=== PATIENT | female | born 1995 | race Caucasian/White ===

== ENCOUNTER 2016-11-09 16:26 | Emergency (ER) | payer BC ==
[2016-11-09] MEDS ORDERED: Take Home: Amoxicillin 875 MG Tab, 2 Tab Pack PO ONE (16:52)
--- NOTE | 2016-11-09 16:58 | EDM.PDOC ---
ED HPI ENT - General Chief Complaint: ENT Problem Time Seen by Provider: 11/09/16 16:40 Source of Information: Reports: Patient - History of Present Illness INITIAL COMMENTS - FREE TEXT/NARRATIVE: 3week history of sinus congestion, headache, cough nonproductive. denies fever , chills, bodyache. occasional sore throat. - Related Data Allergies/ADRs: Allergies Allergy/AdvReac Type Severity Reaction Status Date / Time No Known Allergies Allergy Verified 11/09/16 16:44 Home Meds: Home Meds Amoxicillin 875 mg PO BID #16 tablet 11/09/16 [Rx] Levothyroxine Sodium [Levothyroxine Sodium] 150 mcg DAILY 11/09/16 [History] Norethindrone-Ethinyl Estrad [Nortrel 1-35 28 Tablet] 1 tab DAILY 11/09/16 [ History] ED ROS ENT - Review of Systems Review Of Systems: ROS reveals no pertinent complaints other than HPI. ED EXAM, ENT - Physical Exam Exam: See Below General Appearance: alert, WD/WN, no apparent distress Ears: normal external exam, normal canal, TM dullness (herman) Nose: normal inspection Mouth/Throat: Normal inspection, Normal gums, Normal lips, Normal oropharynx, Normal teeth Head: atraumatic, normocephalic Neck: normal inspection, supple, non-tender Respiratory/Chest: no respiratory distress, lungs clear, normal breath sounds, no accessory muscle use Cardiovascular: regular rate, rhythm GI/Abdominal: normal bowel sounds, soft, non tender Course - Orders/Labs/Meds Orders: Active Orders 24 hr Category Date Time Status Amoxicillin [Take Home: Amoxicillin 875 MG Tab, 2 Tab Med 11/09/16 16:52 Once Pack] 1 packet PO ONETIME ONE Medication Orders Amoxicillin (Take Home: Amoxicillin 875 Mg Tab, 2 Tab Pack) 1 packet PO ONETIME ONE Stop: 11/09/16 16:53 Meds: Medications Generic Name Dose Route Start Last Admin Trade Name Freq PRN Reason Stop Dose Admin Amoxicillin 1 packet 11/09/16 16:52 Take Home: Amoxicillin 875 Mg Tab, 2 Tab Pack PO 11/09/16 16:53 ONETIME ONE Departure - Departure Time of Disposition: 17:30 Disposition: Home, Self-Care 01 Condition: good Clinical Impression: Acute sinusitis Prescriptions: Amoxicillin 875 mg PO BID #16 tablet Forms: ED Department Discharge Care Plan Goals: amoxicillin 875mg by mouth twice a day for 10 days total. - Problem List & Annotations (1) Acute sinusitis SNOMED Code(s): 62586918 Code(s): J01.90 - ACUTE SINUSITIS, UNSPECIFIED Status: Acute Priority: Medium Qualifiers: Sinusitis location: unspecified location - My Orders Last 24 Hours: My Active Orders 11/09/16 16:52 Amoxicillin [Take Home: Amoxicillin 875 MG Tab, 2 Tab Pack] 1 packet PO ONETIME ONE - Assessment/Plan Last 24 Hours: My Active Orders 11/09/16 16:52 Amoxicillin [Take Home: Amoxicillin 875 MG Tab, 2 Tab Pack] 1 packet PO ONETIME ONE Plan: amoxicillin 875mg twice a day for total of 10 days.
[2016-11-09 17:14] VITALS: BP 121/84
== END 2016-11-09 17:05 | disposition home or self-care (01) ==
LOC: VM.ED 16:26
DX: J01.90 Acute sinusitis, unspecified (principal); Z79.899 Other long term (current) drug therapy
CPT/HCPCS: 99283; 99283-GF; A9270-GY

== ENCOUNTER 2020-09-26 05:55 | Emergency (ER) | payer BC, MEDICAID ==
--- NOTE | 2020-09-26 06:22 | EDM.PDOC ---
<Jose Dale W - Last Filed: 09/26/20 06:26> ED HPI GENERAL MEDICAL PROBLEM - General Chief Complaint: Chest Pain Stated Complaint: Mid sternal chest pain Time Seen by Provider: 09/26/20 06:10 Source of Information: Reports: Patient History Limitations: Reports: No Limitations - History of Present Illness INITIAL COMMENTS - FREE TEXT/NARRATIVE: Pt. presents to ER with complaints of respirophasic chest pain. Pt. states that she started experiencing the discomfort yesterday and is concerned that the discomfort is not getting any better. She states that the has had some cough, but feels that this is chronic due to smoking. No productive cough. She does complain of some mild sinus congestion. She states that she is not experiencing any jaw, arm, neck or back pain. Denies any hemoptysis. She is not on control. Pt. denies any shortness of breath. No lightheadedness. Denies any palpitations or lightheadedness. Onset Date: 09/25/20 Location: Reports: Chest Quality: Reports: Sharp Associated Symptoms: Reports: Chest Pain. Denies: Confusion, Cough, Diaphoresis, Fever/Chills, Nausea/Vomiting, Syncope - Related Data Allergies Allergy/AdvReac Type Severity Reaction Status Date / Time No Known Allergies Allergy Verified 07/04/19 08:54 Home Meds: Home Meds . [No Known Home Meds] 09/26/20 [History] Past Medical History - Past Health History Medical/Surgical History: Denies Medical/Surgical History Psychiatric History: Reports: Anxiety, Depression Endocrine/Metabolic History: Reports: Hypothyroidism - Past Surgical History GI Surgical History: Reports: Cholecystectomy Social & Family History - Family History Endocrine/Metabolic: Reports: Hypothyroidism ED ROS GENERAL - Review of Systems Review Of Systems: See Below Constitutional: Reports: No Symptoms. Denies: Fever, Chills, Malaise, Fatigue HEENT: Reports: No Symptoms Respiratory: Reports: Pleuritic Chest Pain Cardiovascular: Reports: Chest Pain Endocrine: Reports: No Symptoms GI/Abdominal: Reports: No Symptoms : Reports: No Symptoms Musculoskeletal: Reports: No Symptoms Skin: Reports: No Symptoms Neurological: Reports: No Symptoms Psychiatric: Reports: No Symptoms Hematologic/Lymphatic: Reports: No Symptoms Immunologic: Reports: No Symptoms Departure - Departure Disposition: Home, Self-Care 01 Clinical Impression: Musculoskeletal chest pain - Discharge Information Instructions: Chest Wall Pain, [id number], Nonspecific Chest Pain, Adult, [id number] Referrals: PCP,None [Primary Care Provider] - Forms: ED Department Discharge Additional Instructions: Tylenol and or Ibuprofen as needed for pain. Consider quitting smoking. Return to the ED if new or worsening symptoms. Follow up with PCP in the next 4-6 days if not improving sooner if worse. <Watson Mondragon - Last Filed: 09/26/20 08:17> ED EXAM, GENERAL - Physical Exam Exam: See Below Exam Limited By: No Limitations General Appearance: Alert, WD/WN, No Apparent Distress Ears: Normal External Exam, Normal TMs Nose: Normal Inspection, Normal Mucosa, No Blood Throat/Mouth: Normal Inspection, Normal Lips, Normal Teeth, Normal Voice, No Airway Compromise Head: Atraumatic, Normocephalic Neck: Normal Inspection, Supple, Non-Tender, Full Range of Motion Respiratory/Chest: No Respiratory Distress, Lungs Clear, Normal Breath Sounds, No Accessory Muscle Use, Chest Non-Tender Cardiovascular: Normal Peripheral Pulses, Regular Rate, Rhythm GI/Abdominal: Normal Bowel Sounds, Soft, Non-Tender (Female) Exam: Deferred Rectal (Female) Exam: Deferred Back Exam: Normal Inspection, Full Range of Motion Extremities: Normal Inspection, Normal Range of Motion, Normal Capillary Refill Neurological: Alert, Oriented, CN II-XII Intact, Normal Cognition, No Motor/Sensory Deficits Psychiatric: Normal Affect, Normal Mood Skin Exam: Warm, Dry, Intact, Normal Color Course - Vital Signs Last Recorded V/S: Last Vital Signs Temp 97.7 F 09/26/20 05:55 Pulse 78 09/26/20 05:55 Resp 16 09/26/20 05:55 BP 143/96 H 09/26/20 05:55 Pulse Ox 97 09/26/20 05:55 - Orders/Labs/Meds Orders: Active Orders 24 hr Category Date Time Status Chest 1V Frontal [CR] Stat Exams 09/26/20 06:16 Taken Labs: Laboratory Tests 09/26/20 09/26/20 09/26/20 Range/Units 06:21 06:21 06:21 WBC 5.6 (4.0-10.0) x10^3/uL RBC 4.49 (4.00-5.50) x10^6/uL Hgb 13.6 (12.0-16.0) g/dL Hct 40.7 (33.0-47.0) % MCV 90.6 (78.0-93.0) fL MCH 30.3 (26.0-32.0) pg MCHC 33.4 (32.0-36.0) g/dL RDW Coeff of Rebel 13.0 (10.0-15.0) % Plt Count 263 (130-400) x10^3/uL Neut % (Auto) 58.1 (50.0-80.0) % Lymph % (Auto) 32.7 (25.0-50.0) % Person % (Auto) 6.8 (2.0-11.0) % Eos % (Auto) 2.0 (0.0-4.0) % Baso % (Auto) 0.4 (0.2-1.2) % PT 9.8 L (9.9-12.5) SEC INR 0.9 L (2.0-3.5) D-Dimer, Quantitative (<=0.58) mg/LFEU Sodium 141 (136-145) mmol/L Potassium 4.1 (3.5-5.1) mmol/L Chloride 104 (98-107) mmol/L Carbon Dioxide 26 (21-32) mmol/L Anion Gap 15.1 H (5-15) mmol/L BUN 18 (7-18) mg/dL Creatinine 0.8 (0.55-1.02) mg/dL Est Cr Clr Drug Dosing 91.21 mL/min Estimated GFR (MDRD) > 60 Glucose 94 (74-106) mg/dL Calcium 8.8 (8.5-10.1) mg/dL Corrected Calcium 9.04 (8.5-10.1) mg/dL Total Bilirubin 0.2 (0.2-1.0) mg/dL AST 17 (15-37) U/L ALT 25 (14-59) U/L Alkaline Phosphatase 99 (46-116) U/L POC Troponin I (0.00-0.08) ng/mL C-Reactive Protein 1.2 H (<=0.9) mg/dL Total Protein 7.5 (6.4-8.2) g/dL Albumin 3.7 (3.4-5.0) g/dL Globulin 3.8 Albumin/Globulin Ratio 0.97 SARS CoV-2 RNA Rapid MARSHA (NEGATIVE) 09/26/20 09/26/20 09/26/20 Range/Units 06:21 06:28 06:36 WBC (4.0-10.0) x10^3/uL RBC (4.00-5.50) x10^6/uL Hgb (12.0-16.0) g/dL Hct (33.0-47.0) % MCV (78.0-93.0) fL MCH (26.0-32.0) pg MCHC (32.0-36.0) g/dL RDW Coeff of Rebel (10.0-15.0) % Plt Count (130-400) x10^3/uL Neut % (Auto) (50.0-80.0) % Lymph % (Auto) (25.0-50.0) % Person % (Auto) (2.0-11.0) % Eos % (Auto) (0.0-4.0) % Baso % (Auto) (0.2-1.2) % PT (9.9-12.5) SEC INR (2.0-3.5) D-Dimer, Quantitative 0.36 (<=0.58) mg/LFEU Sodium (136-145) mmol/L Potassium (3.5-5.1) mmol/L Chloride (98-107) mmol/L Carbon Dioxide (21-32) mmol/L Anion Gap (5-15) mmol/L BUN (7-18) mg/dL Creatinine (0.55-1.02) mg/dL Est Cr Clr Drug Dosing mL/min Estimated GFR (MDRD) Glucose (74-106) mg/dL Calcium (8.5-10.1) mg/dL Corrected Calcium (8.5-10.1) mg/dL Total Bilirubin (0.2-1.0) mg/dL AST (15-37) U/L ALT (14-59) U/L Alkaline Phosphatase (46-116) U/L POC Troponin I 0.00 (0.00-0.08) ng/mL C-Reactive Protein (<=0.9) mg/dL Total Protein (6.4-8.2) g/dL Albumin (3.4-5.0) g/dL Globulin Albumin/Globulin Ratio SARS CoV-2 RNA Rapid MARSHA Negative (NEGATIVE) Meds: Medications Discontinued Medications Generic Name Dose Route Start Last Admin Trade Name Prudence PRN Reason Stop Dose Admin Ketorolac Tromethamine 30 mg 09/26/20 06:23 09/26/20 06:34 Toradol IM 09/26/20 06:24 30 mg ONETIME ONE Administration - Radiology Interpretation Free Text/Narrative:: CXR per radiology no acute findings - Re-Assessments/Exams Free Text/Narrative Re-Assessment/Exam: 09/26/20 I assumed care of this patient at shift change at 7:00. Her EKG is unremarkable. Chest x-ray is negative. Her laboratory evaluation is negative. She does have improved pain with the Toradol. This is clearly musculoskeletal type pain. Discharge her home with NSAIDs at home and symptomatic management she has not improving she is to recheck. She is comfortable with this plan and her questions are answered. Departure - Departure Time of Disposition: 07:15 Sepsis Event Note (ED) - Focused Exam Vital Signs: Vital Signs Temp Pulse Resp BP Pulse Ox 09/26/20 05:55 97.7 F 78 16 143/96 H 97
[2020-09-26] MEDS ORDERED: Ketorolac 30 MG/ML SDV IM ONE (06:23)
[2020-09-26 06:30] VITALS: BP 143/96; PULSE 78
[2020-09-26 06:48] LABS: CHLORIDE,CL 104 mmol/L (98-107); SODIUM,NA 141 mmol/L (136-145)
[2020-09-26 06:59] LABS: ANION GAP 15.1 mmol/L (5-15)
--- NOTE | 2020-09-26 08:26 | CR ---
[id number] RAD/RAD Chest PA or AP 1V EXAM: RAD Chest PA or AP 1V INDICATION: CHEST PAIN. COMPARISON: July 12, 2018. DISCUSSION: Cardiomediastinal silhouette is normal in size and contour. No infiltrate, effusion, pneumothorax, or edema. IMPRESSION: No acute cardiopulmonary abnormality. Louis Cerda DO 09/26/20 0826 Thank you for allowing us to participate in the care of your patient.
== END 2020-09-26 07:25 | disposition home or self-care (01) ==
LOC: VM.ED 05:55
DX: R07.89 Other chest pain (principal); Z20.822 Contact with and (suspected) exposure to COVID-19
CPT/HCPCS: 36415; 71045; 80053; 84484; 85025; 85379; 85610; 86140; 93005; 96372; 99284; 99285-25; J1885; U0002